=== PATIENT | male | born 1960 ===

== ENCOUNTER → 2020-01-11 | Day surgery (SDC) | payer BC ==
[~2020-01-11] MED LIST: Glycopyrrolate 0.2 MG/ML SDV IVPUSH ONE; Ketamine 200 MG/20 ML MDV IV ONE; Propofol 200 MG/20 ML SDV IV ONE
[2020-01-11] MEDS: Lactated Ringers 1,000 ML IV SCH (09:18)
[2020-01-11 11:08] VITALS: BP 132/82; PULSE 54
--- NOTE | 2020-01-11 12:33 | OR ---
DATE OF OPERATION: 01/11/2020 PREOPERATIVE DIAGNOSIS: CONSTIPATION. POSTOPERATIVE DIAGNOSIS: CONSTIPATION. SURGEON: Clayton Beltran MD PROCEDURE: DIAGNOSTIC COLONOSCOPY. ANESTHESIA: MAC. COMPLICATIONS: None. SPECIMEN: None. FINDINGS: 1. Normal full-length colonoscopy. 2. Long tortuous colon. 3. Internal hemorrhoids. RECOMMENDATIONS: Routine colonoscopy every 10 years. Aggressive treatment for patient's ongoing obstipation. INDICATIONS: The patient was in to see his primary provider with complaint of constipation, straining at stools, and altered stool size. He has never had a prior colonoscopy. DESCRIPTION OF PROCEDURE: The patient was prepped and draped, placed in the left lateral decubitus position. A lubricated Olympus colonoscope inserted and with relative ease advanced to the cecum. The patient had extremely tortuous and a long colon, but we were able to safely advance, get deep in the cecal pouch to visualize the ileocecal valve and appendiceal orifice. The bowel prep was adequate. Upon withdrawal, throughout the entire length of the colon, I could find no signs of any polyps, masses, ulceration, or bleeding sites. No vascular abnormalities or signs of colitis. There were no diverticula. The rectal vault appeared benign. Retroflexion confirmed internal hemorrhoids without any active bleeding. Air was then suctioned, the scope removed without complication. WERO/JULIO CÉSAR /[id number]
== END ==
LOC: CC.SDS 08:55
PROVIDERS: ATTEND Family Medicine
DX: K59.00 Constipation, unspecified (principal); Q43.8 Other specified congenital malformations of intestine; K64.8 Other hemorrhoids; E78.5 Hyperlipidemia, unspecified; Z79.899 Other long term (current) drug therapy; Z88.8 Allergy status to other drugs, medicaments and biological substances
CPT/HCPCS: G0121; J2704; J3490; J7120